=== PATIENT | female | born 1950 | race Caucasian/White ===

== ENCOUNTER 2016-10-07 10:18 | Outpatient (CLI) ==
[2016-04-25 10:10] VITALS: BMI 43.1
[2016-10-07 10:48] LABS: BASOPHILS # (AUTO) 0.1 K/uL (0-0.2); BASOPHILS % (AUTO) 0.9 % (0.0-3.0); EOSINOPHILS # (AUTO) 0.3 K/ul (0.0-0.7); EOSINOPHILS % (AUTO) 3.6 % (0.0-7.0); HEMOGLOBIN 13.6 g/dl (12.0-16.0); IMMATURE GRANULOCYTE % (AUTO) 0.5 % (0.0-5.0); LYMPHOCYTES # (AUTO) 2.2 K/uL (0.60-3.4); LYMPHOCYTES % (AUTO) 25.8 (10.0-50.0); MEAN CORPUSCULAR HEMOGLOBIN 31.1 pg (27.0-31.0); MEAN CORPUSCULAR VOLUME 91.5 fl (81.0-99.0); MONOCYTES # (AUTO) 0.5 K/uL (0.4-2.0); MONOCYTES % (AUTO) 6.3 (0-10); NEUTROPHILS # (AUTO) 5.4 K/ul (2.0-6.9); NEUTROPHILS % (AUTO) 62.9; PLATELET COUNT 337 10^3/uL (140-440); RED BLOOD COUNT 4.37 10^6/ul (4.20-5.40); WHITE BLOOD COUNT 8.61 K/ul (4.6-10.2)
--- NOTE | 2016-10-07 10:59 | DI ---
EXAM: Two-view chest HISTORY: Cough TECHNIQUE: Frontal and lateral views of the chest were obtained. FINDINGS: The heart is normal size. Lungs are clear. The pulmonary vasculature appears normal. Th e osseous structures and mediastinal contours are normal. IMPRESSION: No active cardiopulmonary disease.
[2016-10-07 11:29] LABS: ALBUMIN 3.8 g/dL (3.4-5.0); ALBUMIN/GLOBULIN RATIO 0.95; BILIRUBIN,TOTAL 0.49 mg/dL (0.00-1.20); BUN/CREATININE RATIO 18.4; CALCIUM 9.7 mg/dL (8.2-10.2); CHOL/HDL RATIO 8.8 (4.5-5.5); CREATININE 1.63 mg/dL (0.60-1.30); TOTAL PROTEIN 7.8 g/dL (5.8-8.1)
== END 2016-10-07 10:19 | disposition home or self-care (01) ==
LOC: RAD 10:18
PROVIDERS: ATTEND Emergency Medicine
DX: E11.9 Type 2 diabetes mellitus without complications (principal); I10 Essential (primary) hypertension; E78.5 Hyperlipidemia, unspecified; E03.9 Hypothyroidism, unspecified; R05 Cough
CPT/HCPCS: 36415; 80053; 80061; 83036; 84443; 85025

== ENCOUNTER 2016-11-16 08:58 | Outpatient (CLI) ==
[2016-04-25 10:10] VITALS: BMI 43.1
--- NOTE | 2016-11-17 08:01 | MAMMO ---
EXAM: Digital screening mammogram HISTORY: screening mammogram COMPARISON: Mammogram 03/17/2015 all and 02/01/2014 FINDINGS: Bilateral CC and MLO views of the breasts were performed digitally and demonstrate scatte red fibroglandular breast density (25-50%). Stable bilateral calcifications are present. There is n o abnormal nodule or calcification. There is no significant interval change. IMPRESSION: No suspicious nodule or calcification RECOMMENDATION: Annual screening mammogram BIRADS category II: Benign findings
== END 2016-11-16 08:59 | disposition home or self-care (01) ==
LOC: RAD 08:58
PROVIDERS: ATTEND Emergency Medicine
DX: Z12.31 Encounter for screening mammogram for malignant neoplasm of breast (principal)

== ENCOUNTER 2016-12-27 08:07 | Outpatient (CLI) ==
[2016-04-25 10:10] VITALS: BMI 43.1
[2016-12-27 08:43] LABS: ALBUMIN 3.4 g/dL (3.4-5.0); ALBUMIN/GLOBULIN RATIO 0.97; BILIRUBIN,TOTAL 0.42 mg/dL (0.00-1.20); BUN/CREATININE RATIO 13.92; CALCIUM 9.4 mg/dL (8.2-10.2); CREATININE 1.58 mg/dL (0.60-1.30); TOTAL PROTEIN 6.9 g/dL (5.8-8.1)
== END 2016-12-27 08:08 | disposition home or self-care (01) ==
LOC: LAB 08:07
PROVIDERS: ATTEND Emergency Medicine
DX: N18.9 Chronic kidney disease, unspecified (principal)
CPT/HCPCS: 36415; 80053

== ENCOUNTER 2017-02-18 09:31 | Outpatient (CLI) | payer OTHER ==
[2016-04-25 10:10] VITALS: BMI 43.1
[2017-02-18 10:18] LABS: ALBUMIN 3.7 g/dL (3.4-5.0); ALBUMIN/GLOBULIN RATIO 1.03; ANION GAP 14.2; BILIRUBIN,TOTAL 0.62 mg/dL (0.00-1.20); BUN/CREATININE RATIO 15.26; CALCIUM 9.5 mg/dL (8.2-10.2); CREATININE 1.31 mg/dL (0.60-1.30); POTASSIUM 4.2 mmol/L (3.5-5.10); TOTAL PROTEIN 7.3 g/dL (5.8-8.1)
== END 2017-02-18 09:32 | disposition home or self-care (01) ==
LOC: LAB 09:31
PROVIDERS: ATTEND Emergency Medicine
DX: E11.9 Type 2 diabetes mellitus without complications (principal); N18.9 Chronic kidney disease, unspecified
CPT/HCPCS: 36415; 80053; 83036

== ENCOUNTER 2017-05-05 08:07 | Outpatient (CLI) ==
[2016-04-25 10:10] VITALS: BMI 43.1
--- NOTE | 2017-05-05 09:12 | US ---
EXAM: Ultrasound retroperitoneal complete. HISTORY: Decreased glomerular filtration rate. COMPARISON: 06/13/2015. TECHNIQUE: Multiple nichols scale and color Doppler images. FINDINGS: Right kidney measures 9.5 x 5.4 x 4 cm. The left kidney measures 9.8 x 5.1 x 4.3 cm. Co rtical echogenicity and thickness are normal. There is no hydronephrosis. Urinary bladder is not well distended but otherwise unremarkable. IMPRESSION: No acute sonographic abnormality of the kidneys or bladder.
== END 2017-05-05 08:08 | disposition home or self-care (01) ==
LOC: RAD 08:07
PROVIDERS: ATTEND Family Medicine
DX: R94.4 Abnormal results of kidney function studies (principal)
CPT/HCPCS: 76770

== ENCOUNTER 2017-12-12 12:55 | Outpatient (CLI) ==
[2016-04-25 10:10] VITALS: BMI 43.1
== END 2017-12-12 12:56 | disposition home or self-care (01) ==
LOC: RAD 12:55
PROVIDERS: ATTEND Family Medicine
DX: Z12.31 Encounter for screening mammogram for malignant neoplasm of breast (principal)
CPT/HCPCS: 77067